=== PATIENT | male | born 1980 | race Caucasian/White ===

== ENCOUNTER 2020-05-08 14:28 | Emergency (ER) | payer MEDICAID ==
[~2020-05-08] VITALS: Ht 182.9 cm; Wt 66.1 kg
--- NOTE | 2020-05-08 15:28 | NUR ---
PT STATES ABOUT 5-6 DAYS AGO DISCHARGE WAS COMING OUT OF HIS PENIS. PT STATES THAT HE THINKS HE HAS A STD.
[2020-05-08] MEDS ORDERED: CEFTRIAXONE 250 MG ONE (16:29)
[2020-05-08] MEDS ORDERED: AZITHROMYCIN 250 MG TABLET ONE (16:29)
[2020-05-08] MEDS ORDERED: AZITHROMYCIN 500 MG TABLET PO ONE (16:30)
[2020-05-08] MEDS ORDERED: CEFTRIAXONE 250 MG IM ONE (16:30)
[2020-05-08 16:39] LABS: MICROSCOPIC INDICATED
[2020-05-08] MEDS ORDERED: AZITHROMYCIN 500 MG TABLET ONE (16:40)
[2020-05-08 16:54] VITALS: BP 130/74
== END 2020-05-08 17:03 | disposition home or self-care (01) ==
LOC: ED 15:44
DX: N34.1 Nonspecific urethritis (principal); Z86.19 Personal history of other infectious and parasitic diseases
CPT/HCPCS: 81001; 87077; 87086; 87491; 87591; 96372; 99283; J0696